=== PATIENT | male | born 1940 | race Caucasian/White ===

== ENCOUNTER → 2016-10-10 | Outpatient (CLI) | payer OTHER ==
[2016-10-10 13:27] LABS: BUN/CREATININE RATIO 10.9 (6-20); CALCIUM 8.2 mg/dL (8.7-10.7); SERUM ALBUMIN 2.6 g/dL (3.5-4.8)
[2016-10-10 15:03] LABS: HEMOGLOBIN 11.1 g/dL (14.0-18.0); MEAN CORPUSCULAR VOLUME 87.1 FL (80-90)
[2016-10-10 15:04] LABS: HEMATOCRIT 33.8 % (42.0-52.0); MEAN CORPUSCULAR HEMOGLOBIN 28.6 PG (27-31); MEAN CORPUSCULAR HGB CONC 32.8 g/dL (33-37); MEAN PLATELET VOLUME 8.6 FL (7.4-12.2); RED BLOOD COUNT 3.88 10^6/uL (4.70-6.10)
[2016-10-10 16:57] LABS: PLATELET MORPHOLOGY COMMENT NORMAL MORPHOLOGY (NORM); RBC MORPHOLOGY COMMENT NORMAL MORPHOLOGY (NORM); WBC MORPHOLOGY COMMENT NORMAL MORPHOLOGY (NORM)
[2016-10-10 16:59] LABS: BAND NEUTROPHILS % 0 % (0-10); BASOPHILS % (MANUAL) 1 % (0-1); EOSINOPHILS % (MANUAL) 1 % (0-8); LYMPHOCYTES % (MANUAL) 44 % (10-50); METAMYELOCYTES % 0 %; MONOCYTES % (MANUAL) 2 % (0-12); MYELOCYTES % 0 %; NEUTROPHILS % (MANUAL) 52 % (50-80); PROMYELOCYTES % 0 %
== END ==
LOC: MOB LAB 12:19
PROVIDERS: ATTEND Internal Medicine
DX: R63.4 Abnormal weight loss (principal); M54.5 Low back pain; R60.0 Localized edema
CPT/HCPCS: 36415; 80053; 84443; 85007